=== PATIENT | male | born 1990 | race Caucasian/White ===

== ENCOUNTER 2016-06-13 11:32 | Emergency (ER) | payer BC ==
[~2016-06-13] VITALS: Ht 170.2 cm; Wt 80.0 kg
[2016-06-13] MEDS ORDERED: SOD CHLORIDE 0.9% 1,000 ML IV STA (11:40)
[2016-06-13 11:51] VITALS: Ht 170.2 cm; Wt 80.0 kg
[2016-06-13] MEDS ORDERED: SOD CHLORIDE 0.9% 100 ML ONE (11:52)
[2016-06-13] MEDS ORDERED: IOHEXOL 100 ML ONE (11:52)
[2016-06-13] MEDS ORDERED: IOHEXOL 350MG/ML 50 ML BTL ONE (11:52)
[2016-06-13] MEDS ORDERED: DIPHTH/TET/ACEL PERTUSS (ADULT) 0.5 ML VIAL IM* ONE (12:00)
[2016-06-13] MEDS ORDERED: ONDANSETRON 4 MG INJ IV ONE (12:00)
[2016-06-13] MEDS ORDERED: FENTAnyl 50 MCG/ML VIAL IV ONE (12:00)
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
[2016-06-13 12:12] LABS: BASOPHILS % 0.4 % (0.0-2.0); EOSINOPHILS # 0.2 10^3/ul (0.0-0.5); EOSINOPHILS % 1.9 % (0.0-7.0); HEMATOCRIT 46.4 % (42.0-52.0); HEMOGLOBIN 15.9 g/dl (14.0-18.0); LYMPHOCYTES # 2.4 10^3/ul (0.8-2.9); LYMPHOCYTES % 27.2 % (15.0-51.0); MEAN CORPUSCULAR HEMOGLOBIN 30.5 pg (29.0-33.0); MEAN CORPUSCULAR HGB CONC 34.3 g/dl (32.0-37.0); MEAN CORPUSCULAR VOLUME 89.1 fl (82.0-101.0); MEAN PLATELET VOLUME 9.2 fl (7.4-10.4); MONOCYTE # 0.9 10^3/ul (0.3-0.9); MONOCYTES % 9.9 % (0.0-11.0); NEUTROPHIL # 5.3 10^3/ul (1.6-7.5); NEUTROPHILS % 60.6 % (39.0-77.0); PLATELET COUNT 283 10^3/UL (140-440); RED BLOOD COUNT 5.21 10^6/ul (4.70-6.10); RED CELL DISTRIBUTION WIDTH 13.6 % (11.5-14.5); UNCORRECTED WBC 8.7 10^3/ul (4.8-10.8); WHITE BLOOD COUNT 8.7 10^3/ul (4.8-10.8)
[2016-06-13 12:15] LABS: CONDITION 1
[2016-06-13 12:18] LABS: ALBUMIN 4.2 g/dl (3.3-4.9)
[2016-06-13 12:19] LABS: CHLORIDE 106 mmol/L (97-110); POTASSIUM 3.9 mmol/L (3.5-5.1); SODIUM 146 mmol/L (135-144)
[2016-06-13 12:21] LABS: ANION GAP 18 (8-16); ASPARTATE AMINO TRANSFERASE 26 IU/L (15-46); BILIRUBIN,INDIRECT 0.2 mg/dl (0-1.1); BILIRUBIN,TOTAL 0.2 mg/dl (0.2-1.3); CARBON DIOXIDE 26 mmol/L (21-31); CREATININE 0.94 mg/dl (0.61-1.24)
[2016-06-13 12:22] LABS: ALANINE AMINOTRANSFERASE 35 IU/L (13-69); ALKALINE PHOSPHATASE 124 IU/L (42-121); BLOOD UREA NITROGEN 16 mg/dl (7-20); CALCIUM 9.1 mg/dl (8.4-10.2); GLUCOSE 107 mg/dl (70-220); TOTAL PROTEIN 7.5 g/dl (6.1-8.1)
[2016-06-13 12:24] LABS: INR 0.91; PROTIME 12.2 Sec (12.2-14.2)
[2016-06-13 12:25] LABS: PARTIAL THROMBOPLASTIN TIME 30.3 Sec (25.0-35.0)
[2016-06-13 12:29] LABS: ETHANOL < 10.0 mg/dl
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
[2016-06-13] MEDS ORDERED: CEFAZOLIN 2 GM/50 ML (PMX) 50 ML IVPB ONE (13:30)
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
[2016-06-13 15:27] VITALS: BP 153/79; PULSE 83; RESP 18; TEMP 97.6
== END 2016-06-13 15:49 | disposition other institution (70) ==
LOC: E/R 11:32
DX: S71.102A Unspecified open wound, left thigh, initial encounter (principal); R07.9 Chest pain, unspecified; W34.00XA Accidental discharge from unspecified firearms or gun, initial encounter; Y92.9 Unspecified place or not applicable; Z23 Encounter for immunization; Z87.891 Personal history of nicotine dependence
CPT/HCPCS: 71010; 72170; 75635; 80048; 80076; 80306; 85025; 85610; 85730; 86850; 86900; 86901; 90471; 90715; 96374; 96375; J0690; J2405; J3010; J7030; Q9967; Z7502; Z7610